=== PATIENT | female | born 1990 | race Caucasian/White ===

== ENCOUNTER 2023-09-20 10:02 | Emergency (ER) | payer OTHER ==
[2023-09-20] MEDS: Acetaminophen/oxyCODONE 325-5 MG Tab PO ONE (10:55)
[2023-09-20] MEDS: Silver Sulfadiazine 1% Crm 400 GM Jar TOP ONE (10:55)
[2023-09-20] MEDS: Ketorolac 60 MG/2 ML SDV IM ONE (10:56)
[2023-09-20] MEDS: ceFAZolin 1 GM Vial IM ONE (10:56)
== END 2023-09-20 11:30 | disposition home or self-care (01) ==
LOC: JD.ED 10:02
DX: T21.11XA Burn of first degree of chest wall, initial encounter (principal); F17.210 Nicotine dependence, cigarettes, uncomplicated; Z91.018 Allergy to other foods; Z79.899 Other long term (current) drug therapy; Z86.16 Personal history of COVID-19; Z90.49 Acquired absence of other specified parts of digestive tract; X12.XXXA Contact with other hot fluids, initial encounter; Y93.89 Activity, other specified; Y99.0 Civilian activity done for income or pay
CPT/HCPCS: 16000; 96372; 99283; A9270; J0690; J1885

== ENCOUNTER 2024-05-19 03:52 | Emergency (ER) | payer SELFPAY | END 2024-05-19 05:32 | LOC: JD.ED 03:52 | DX: S83.91XA Sprain of unspecified site of right knee, initial encounter (principal); F17.210 Nicotine dependence, cigarettes, uncomplicated; Z86.16 Personal history of COVID-19; Z79.899 Other long term (current) drug therapy; Z91.018 Allergy to other foods; X50.9XXA Other and unspecified overexertion or strenuous movements or postures, initial encounter; Y93.01 Activity, walking, marching and hiking; Y99.0 Civilian activity done for income or pay | CPT/HCPCS: 29505; 73564-26-RT; 73564-RT; 99282; 99283 ==